=== PATIENT | female | born 1985 | race Two or more races ===

== ENCOUNTER 2017-12-24 08:55 | Emergency (ER) | payer OTHER ==
[~2017-12-24] VITALS: Ht 167.6 cm; Wt 70.3 kg
[~2017-12-24 08:55] MED LIST: PRENCAP15
[2017-12-24 09:15] VITALS: BP 113/80
[2017-12-24] MEDS ORDERED: KETOROLAC TROMETH 60MG/2ML VIAL IM ONE (09:30)
== END 2017-12-24 10:10 | disposition home or self-care (01) ==
LOC: ER 08:55
DX: S39.012A Strain of muscle, fascia and tendon of lower back, initial encounter (principal); X58.XXXA Exposure to other specified factors, initial encounter; Y93.89 Activity, other specified; Y99.8 Other external cause status; Y92.89 Other specified places as the place of occurrence of the external cause
CPT/HCPCS: 72100; 81002; 96372; 99284; J1885

== ENCOUNTER 2018-10-15 11:41 | Emergency (ER) | payer OTHER, BC ==
[~2018-10-15] VITALS: Ht 170.2 cm; Wt 65.8 kg
[2018-10-15 11:52] VITALS: BP 138/97
[2018-10-15] MEDS ORDERED: HYDROcodone-ACET 10/325MG TAB PO ONE (12:00)
[2018-10-15] MEDS ORDERED: KETOROLAC TROMETH 60MG/2ML VIAL IM ONE (12:15)
== END 2018-10-15 13:20 | disposition home or self-care (01) ==
LOC: ER 11:42
DX: S16.1XXA Strain of muscle, fascia and tendon at neck level, initial encounter (principal); X58.XXXA Exposure to other specified factors, initial encounter; Y93.89 Activity, other specified; Y99.8 Other external cause status; Y92.89 Other specified places as the place of occurrence of the external cause
CPT/HCPCS: 72125; 96372; 99284; J1885

== ENCOUNTER 2024-03-06 17:43 | Emergency (ER) | payer BC, OTHER ==
[~2024-03-06] VITALS: Ht 167.6 cm; Wt 79.2 kg
[2024-03-06] MEDS: KETOROLAC TROMETH 30 MG/ML 1ML VIAL IM ONE (18:45)
[2024-03-06] MEDS ORDERED: CYCL-837 PO (19:51)
[2024-03-06 20:05] VITALS: BP 126/84; PULSE 93; RESP 16; O2SAT 97
== END 2024-03-06 20:09 | disposition home or self-care (01) ==
LOC: ER 17:43
DX: S60.012A Contusion of left thumb without damage to nail, initial encounter (principal); S40.012A Contusion of left shoulder, initial encounter; S50.02XA Contusion of left elbow, initial encounter; V43.52XA Car driver injured in collision with other type car in traffic accident, initial encounter; Y93.89 Activity, other specified; Y92.488 Other paved roadways as the place of occurrence of the external cause; Y99.8 Other external cause status
CPT/HCPCS: 71046; 73030; 73080; 73140; 96372; 99284; J1885